=== PATIENT | male | born 1945 | race Caucasian/White ===

== ENCOUNTER 2018-03-01 10:02 | Day surgery (SDC) | payer MEDICARE ==
[2018-01-29 12:33] VITALS: BMI 25.2
[2018-03-01] MEDS ORDERED: ceFAZolin IV 1 gm in Dextrose 1 GM/50 ML BAG IVPB ONE (14:10)
[2018-03-01] MEDS ORDERED: Bupivacaine 0.25% 20 ML INJ IJ ONE (14:11)
[2018-03-01] MEDS ORDERED: Absorbable Gelatin Sponge Size 12-7 ONE (14:11)
[2018-03-01] MEDS ORDERED: Midazolam 2 MG/2 ML VIAL ONE (14:43)
[2018-03-01] MEDS ORDERED: Propofol 10 mg/ml Inj (20 ML) ONE (14:43)
[2018-03-01] MEDS ORDERED: HYDROmorphone 0.5 mg/0.5 ml ISec IVP PRN (16:17)
[2018-03-01] MEDS ORDERED: Lactated Ringer's 1,000 ML IV SCH (16:30)
[2018-03-01] MEDS ORDERED: Oxycodone/Acetaminophen 5/325 mg Tab PO PRN (16:36)
[2018-03-01] MEDS ORDERED: Lactated Ringer's 1,000 ML IV ONE (17:00)
[2018-03-01 17:21] VITALS: BP 128/68; PULSE 80; RESP 18; TEMP 98; O2SAT 100
--- NOTE | 2018-03-02 03:44 | OP ---
PROCEDURE DATE: 03/01/2018 PREOPERATIVE DIAGNOSIS: Complex hemorrhoids. POSTOPERATIVE DIAGNOSIS: Complex hemorrhoids. PROCEDURE PERFORMED: Complex hemorrhoidectomy. SURGEON: Andrés Pablo MD ANESTHESIA: General endotracheal. ESTIMATED BLOOD LOSS: 50 mL. POSTOPERATIVE CONDITION: Stable. INDICATIONS FOR SURGERY: This is a 72-year-old male with longstanding hemorrhoids which have worsened and become intractable and not responsive to conservative measures. He now will undergo hemorrhoidectomy. GROSS FINDINGS: There was a mixed, large internal and external hemorrhoid in the right superior quadrant and an internal hemorrhoid in the left lateral quadrant. Both these hemorrhoids were removed. DESCRIPTION OF PROCEDURE: The patient was taken to the operating room. General anesthesia was administered. He was placed in the lithotomy position with the buttocks taped open. A proctosigmoidoscopy was performed to only 10 cm due to a poor prep. There were no abnormal findings. Next, an anal retractor was placed, and the right anterior hemorrhoid was grasped with a navjot clamp. It was ligated at its base using a heavy 0 Monocryl. A generous elliptical incision was made surrounding the hemorrhoid. It was dissected free and removed. A fair amount of bleeding was encountered and appeared to be from a pudendal blood vessel. It was felt direct repair was warranted. It was directly repaired using Prolene and then the wound was irrigated with saline. The mucosa was then reapproximated with two rows of a running heavy Monocryl suture. To facilitate easy closure, full-thickness tissue flaps were raised, and counterincisions were performed to perform advancement flap closures. Once the mucosa had been reapproximated, the wound was irrigated, inspected, found to be without evidence of bleeding. Attention was then turned to the left lateral quadrant. A navjot clamp was used to grasp the hemorrhoid, and it was ligated at its base. An elliptical incision was made surrounding the hemorrhoid, and it was dissected free using Metzenbaum scissors. The defect again was closed with a running Monocryl and a small advancement flap was raised to facilitate a tension-free closure. The patient tolerated the procedure well. Returned to recovery room in stable condition. Andrés Pablo MD
== END 2018-03-01 17:49 | disposition home or self-care (01) ==
LOC: C.SDS 10:02
PROVIDERS: ATTEND Surgery
DX: K64.8 Other hemorrhoids (principal); K64.4 Residual hemorrhoidal skin tags
CPT/HCPCS: 46260; 82948; J0690; J2250; J2704; J3010; J7120